=== PATIENT | female | born 1970 | race Hispanic/Latino ===

== ENCOUNTER 2025-05-09 11:14 | Emergency (ER) | payer BC ==
[~2025-05-09] VITALS: Ht 157.5 cm; Wt 70.3 kg
[2025-05-09 11:30] LABS: APPEARANCE,URINE CLEAR (CLEAR); GLUCOSE, URINE (UA) NEGATIVE (NEGATIVE); LEUKOCYTE ESTERASE ,URINE NEGATIVE Leu/uL (NEGATIVE); NITRATE,URINE NEGATIVE (NEGATIVE); OCCULT BLOOD,URINE NEGATIVE (NEGATIVE)
[2025-05-09] MEDS: 0.9%NACL 1000ML 1,000 ML IV STA (11:31)
[2025-05-09 11:36] LABS: IMMATURE GRANULOCYTE ABSOLUTE 0.01 K/uL (0-1); NUCLEATED RED BLOOD CELLS 0.0 % (0.0-0.19); PLATELET COUNT (AUTO) 264 K/uL (130-400); RED BLOOD CELL COUNT(AUTO) 4.43 MIL/uL (4.00-5.50); RED CELL DISTRIBUTION WIDTH 12.9 % (11.0-15.5); WHITE BLOOD COUNT (AUTO) 5.4 K/uL (4.8-10.8)
[2025-05-09 11:39] LABS: ADD UA MICROSCOPIC YES
[2025-05-09 11:47] LABS: CREATININE 0.7 mg/dL (0.5-1.0); GLOMERULAR FILTR. RATE CALC 101.0 mL/min (>90); GLUCOSE,RANDOM 98.0 mg/dL (70-105); SODIUM SERUM 140.0 mmol/L (136-145); UREA NITROGEN, BLOOD 9.0 mg/dL (7-18)
[2025-05-09 11:58] LABS: HCG,QUANTITATIVE 1.0 mIU/mL (0-5)
--- NOTE | 2025-05-09 13:17 | HMCIMG ---
EXAM: CT Abdomen and Pelvis Without IV contrast CLINICAL HISTORY: l flank pain TECHNIQUE: Axial computed tomography images of the abdomen and pelvis without intravenous contrast. CONTRAST: No IV contrast. COMPARISON: None provided. FINDINGS: LUNG BASES: The lung bases appear clear. No pleural effusions are seen. LIVER: Unremarkable. GALLBLADDER AND BILE DUCTS: The gallbladder appears within normal limits. No radioopaque gallstones are seen. No biliary ductal dilatation is evident. PANCREAS: Unremarkable. SPLEEN: Unremarkable. ADRENAL GLANDS: Unremarkable. KIDNEYS, URETERS, AND BLADDER: There is evidence of a tiny calculus measuring 1.8 x 2 x 2.3 mm noted along the left vesicoureteric junction with upstream mild dilatation of left pelvicalyceal system and ureter. The kidneys appear within normal limits. There is no hydronephrosis or hydroureter. No urinary calculi are seen. STOMACH AND BOWEL: Unremarkable appearance of the stomach and bowel. No evidence of bowel obstruction. No evidence suggesting enteritis or colitis. APPENDIX: No evidence of acute appendicitis on CT examination. PERITONEUM: No free fluid. No free air. LYMPH NODES: No lymphadenopathy is evident. REPRODUCTIVE: Unremarkable as visualized. VASCULATURE: No evidence of abdominal aortic aneurysm. BONES: No aggressive appearing osseous lesion. No acute osseous pathology evident. Presumed chronic compression deformity at the superior endplate of L2. IMPRESSION: 1. 1.8 x 2 x 2.3 mm calculus at the left vesicoureteric junction with mild upstream left ureteral and pelvicalyceal dilatation. /[place]
[2025-05-09] MEDS ORDERED: TAMS-55 PO (13:28)
[2025-05-09] MEDS ORDERED: KETO10TA2 PO (13:28)
--- NOTE | 2025-05-09 13:29 | ERN ---
ED Note History of Present Illness Stated Complaint: LEFT FLANK Chief Complaint: Flank Pain Time Seen by MD: 11:14 Time Seen by Midlevel: 11:18 Dictation: 55-year-old female coming in complaining of pain to the left flank radiating to the left lower quadrant. Patient states it started this morning. Denies having any fever, nausea vomiting, dysuria or hematuria. Denies any medical history, and only surgical history of a . Allergies: Coded Allergies: No Known Drug Allergies (Unverified Allergy, Unknown, 05/09/25) Past Medical History Past Medical History: No Pertinent History Surgical History: Review of System Dictation Constitutional: Negative for fever,chills, and weight loss Eyes: Negative for injury, pain,redness, and discharge ENT: Negative for injury,pain or swelling Cardiovascular: Negative for chest pain, palpitations, and edema Respiratory: Negative for shortness of breath, cough, and wheezing, Abdomen/GI: Negative for abdominal pain, nausea, vomiting, diarrhea, and constipation Back: Negative for injury and pain : Negative for injury, bleeding and discharge,, left flank pain MS/Extremity: Negative for injury and deformity Skin: Negative for rash, and discoloration Neuro: Negative for headache, weakness, numbness, tingling, and seizure Psych: Negative for suicide ideation, homicidal ideation, and hallucinations Review of Systems: was completed Initial Vital Sign VS Vital Signs Date Time Temp Pulse Resp B/P (MAP) Pulse Ox O2 Delivery O2 Flow Rate FiO2 05/09/25 11:14 98.2 73 20 185/81 99 Room Air 0 05/09/25 11:37 21 Physical Exam Dictation General: awake, alert, NAD Head/Face: Normocephalic, atraumatic Eyes: PERRL, EOMI, vision at baseline ENT: oral cavity clear, TMs clear, no signs of infection Neck: Trachea midline, supple, no nuchal rigidity Cardiovascular: RRR, normal S1/S2, No MRGs, no JVD Respiratory: CTAB, no respiratory distress, No rales or wheezes Abdomen: Soft, non-tender, non-distended, normal bowel sounds, no guarding or rebound. Skin: Warm, dry, normal turgor, no rash MS/Extremity: Pulses equal, no cyanosis, neurovascular intact, FROM Neuro: COAx4, GCS 15, strength 5/5, CN 2-12 intact, normal cerebellar exam, normal gait, Psych: Normal behavior, mood, and affect normal Results (Laboratory/Radiology) Laboratory/Radiology Laboratory Tests Test 05/09/25 11:20 05/09/25 11:29 Urine Color COLORLESS (YELLOW) Urine Appearance CLEAR (CLEAR) Urine pH 8.0 (5.0-8.0) Urine Specific Walker 1.004 (1.001-1.031) Urine Protein NEGATIVE mg/dL (NEGATIVE) Urine Glucose (UA) NEGATIVE mg/dL (NEGATIVE) Urine Ketones 10 mg/dL (NEGATIVE) H Urine Occult Blood NEGATIVE (NEGATIVE) Urine Nitrate NEGATIVE (NEGATIVE) Urine Bilirubin NEGATIVE mg/dL (NEGATIVE) Urine Urobilinogen 0.2 mg/dL (0.2-1.0) Urine Leukocyte Esterase NEGATIVE [place]/uL Urine RBC 2-5 /HPF (0-1) H Urine WBC None Seen /HPF (0-1) Urine Bacteria None Seen /HPF (None Seen) White Blood Count 5.4 K/uL (4.8-10.8) Red Blood Count 4.43 MIL/uL (4.00-5.50) Hemoglobin 13.1 g/dL (12.0-16.0) Hematocrit 38.8 % (36-48) Mean Corpuscular Volume 87.6 fL (79-99) Mean Corpuscular Hemoglobin 29.6 pg (27.0-33.0) Mean Corpuscular Hemoglobin Concent 33.8 g/dL (32.0-36.0) Red Cell Distribution Width 12.9 % (11.0-15.5) Platelet Count 264 K/uL (130-400) Mean Platelet Volume 10.2 fL (7.5-10.5) Immature Granulocyte % (Auto) 0.2 % (0-1) Neutrophils (%) (Auto) 60.3 % (40.0-77.0) Lymphocytes (%) (Auto) 30.1 % (21.0-51.0) Monocytes (%) (Auto) 7.4 % (3.0-13.0) Eosinophils (%) (Auto) 1.3 % (0.0-8.0) Basophils (%) (Auto) 0.7 % (0.0-5.0) Neutrophils # (Auto) 3.3 K/uL (1.8-7.7) Lymphocytes # (Auto) 1.6 K/uL (1.0-4.8) Monocytes # (Auto) 0.4 K/uL (0.1-1.0) Eosinophils # (Auto) 0.07 K/uL (0.00-0.70) Basophils # (Auto) 0.04 K/uL (0.00-0.20) Absolute Immature Granulocyte (auto 0.01 K/uL (0-1) Nucleated Red Blood Cells 0.0 % (0.0-0.19) Sodium Level 140 mmol/L (136-145) Potassium Level 4.1 mmol/L (3.5-5.1) Chloride Level 104 mmol/L (101-111) Carbon Dioxide Level 27 mmol/L (21-32) Blood Urea Nitrogen 9 mg/dL (7-18) Creatinine 0.7 mg/dL (0.5-1.0) Glomerular Filtration Rate Calc 101 mL/min (>90) Random Glucose 98 mg/dL (70-105) Total Calcium 9.4 mg/dL (8.5-10.1) Lipase 28 U/L (16-77) Human Chorionic Gonadotropin, Quant 1 mIU/mL (0-5) Labs Reviewed?: Yes CT Scan Comment: [address] [address] IMAGING REPORT Signed PATIENT: PERI DRISCOLL MR#: [id number] : 1970 SEX: F AGE: 55 LOCATION: [facility] ORDER 1121 STATUS: REG ER REPORT#: [id number] SERVICE 1120 REASON: l flank pain ORDERING PHYSICIAN: MAYRA OGDEN NP PROCEDURE: ABD PEL WO - CT ABDOMEN/PELVIS W/O CONTRAST EXAM: CT Abdomen and Pelvis Without IV contrast CLINICAL HISTORY: l flank pain TECHNIQUE: Axial computed tomography images of the abdomen and pelvis without intravenous contrast. CONTRAST: No IV contrast. COMPARISON: None provided. FINDINGS: LUNG BASES: The lung bases appear clear. No pleural effusions are seen. LIVER: Unremarkable. GALLBLADDER AND BILE DUCTS: The gallbladder appears within normal limits. No radioopaque gallstones are seen. No biliary ductal dilatation is evident. PANCREAS: Unremarkable. SPLEEN: Unremarkable. ADRENAL GLANDS: Unremarkable. KIDNEYS, URETERS, AND BLADDER: There is evidence of a tiny calculus measuring 1.8 x 2 x 2.3 mm noted along the left vesicoureteric junction with upstream mild dilatation of left pelvicalyceal system and ureter. The kidneys appear within normal limits. There is no hydronephrosis or hydroureter. No urinary calculi are seen. STOMACH AND BOWEL: Unremarkable appearance of the stomach and bowel. No evidence of bowel obstruction. No evidence suggesting enteritis or colitis. APPENDIX: No evidence of acute appendicitis on CT examination. PERITONEUM: No free fluid. No free air. LYMPH NODES: No lymphadenopathy is evident. REPRODUCTIVE: Unremarkable as visualized. VASCULATURE: No evidence of abdominal aortic aneurysm. BONES: No aggressive appearing osseous lesion. No acute osseous pathology evident. Presumed chronic compression deformity at the superior endplate of L2. IMPRESSION: 1. 1.8 x 2 x 2.3 mm calculus at the left vesicoureteric junction with mild upstream left ureteral and pelvicalyceal dilatation. /[place] DICTATED BY: MORRIS PADGETT Jr., MD DATE: 05/09/251415 ELECTRONICALLY SIGNED BY: MORRIS PADGETT Jr., MD DATE: 05/09/251415 ED Course ED Course Orders Procedure Category Date Status Time Cbc With Differential LAB 05/09/25 Complete 11:20 Basic Metabolic Panel LAB 05/09/25 Complete 11:20 Lipase LAB 05/09/25 Complete 11:20 Urinalysis Profile LAB 05/09/25 Complete 11:20 Hcg,Quantitative LAB 05/09/25 Complete 11:20 Ct Abdomen/Pelvis W/O CT 05/09/25 Resulted Contrast 11:20 0.9%Nacl 1000ml (Ns PHA 05/09/25 Complete 1000ml) 11:21 Ketorolac PHA 05/09/25 Complete Tromethamine 15mg/Ml 11:21 Current Medications Medications (Trade) Dose Ordered Sig/Smith Route PRN Reason Start Time Stop Time Status Last Admin Dose Admin Ketorolac Tromethamine (toRADol) 15 mg ONCE STAT IV 05/09/25 11:21 05/09/25 11:27 DC 05/09/25 11:31 Sodium Chloride 1,000 ml @ 1,000 mls/hr Q1H STAT IV 05/09/25 11:21 05/09/25 12:20 DC 05/09/25 11:31 Vital Signs Date Time Temp Pulse Resp B/P (MAP) Pulse Ox O2 Delivery O2 Flow Rate FiO2 05/09/25 11:37 98.2 72 20 180/76 98 Room Air* 0 21 05/09/25 11:14 98.2 73 20 185/81 99 Room Air 0 Medical Decision Making MDM MDM: 55-year-old female coming in complaining of pain to the left flank radiating to the left lower quadrant. Patient states it started this morning. Denies having any fever, nausea vomiting, dysuria or hematuria. Denies any medical history, and only surgical history of a . Blood work is unremarkable. Urine shows no evidence of urinary tract infection. CT scan of the abdomen and pelvis There is evidence of a tiny calculus measuring 1.8 x 2 x 2.3 mm noted along the left vesicoureteric junction with upstream mild dilatation of left pelvicalyceal system and ureter. Discussed findings with the patient. Educated patient that I will give him medication to dilate her ureters, increase fluid intake take pain medication and follow up with PCP in 1- 2 days. Patient verbalized understanding, answered all questions. Differential diagnosis: Constipation, urinary tract infection, kidney stone Rationale: Tests considered and ordered secondary to shared decision making include: Previous outside records reviewed: Old ER visits. Risk of complication and/or morbidity or mortality of patient management: None Medications-Per medication reconciliation Need for hospitalization: Patient does not meet criteria for hospitalization. Need for emergency major/minor surgery: No There are no social concerns with this patient. Prescription drug management Prescriptions will include symptomatic care Patient's prior external medical records from other ER visits were reviewed by me as indicated. Prior testing and results from previous visits were reviewed. Prior tests were taken into account with medical decision making and resource utilization, independent historian/historians were used to obtain complete medical history. I independently interpreted the test that were performed, results were reviewed by me and considered findings on radiology if ordered. Medical management and examination interpretation discussions were had by me with other qualified healthcare professionals as indicated for the patient's care. DX & DISP Disposition: Discharge Departure Impression: Primary Impression: Kidney stone on left side Condition: Stable Scripts Ketorolac Tromethamine (Ketorolac Tromethamine) 10 Mg Tablet 1 TAB PO Q6HPRN PRN for pain for 5 Days, #20 TAB 0 Refills Prov: MAYRA OGDEN NP 05/09/25 Tamsulosin HCl (Flomax) 0.4 Mg Cap.er.24h 1 CAP PO DAILY for 30 Days, #30 CAP 0 Refills Prov: MAYRA OGDEN NP 05/09/25 Additional Instructions: You have a kidney stone in your left ureter. Take medications as prescribed. You medication is to delay ureters and help pass the stone. Has not want takes periods pain in sometimes eating blood in your urine while so in his passing. Follow up with the urologist in 1-2 days and your PCP. If you start to develop any fevers, nausea vomiting report back to the emergency room. Referrals: DOM BECKMAN MD (PCP) DANIELE CHAVEZ MD Time of Disposition: 13:28 I have reviewed the case, and I agree with, Diagnosis and Plan MAYRA OGDEN NP May 09, 2025 13:29
[2025-05-09 13:40] VITALS: BP 178/74; PULSE 70; RESP 20; TEMP 98.2; O2SAT 98
== END 2025-05-09 13:56 | disposition home or self-care (01) ==
LOC: EDH 11:14
DX: N20.0 Calculus of kidney (principal); R10.2 Pelvic and perineal pain; Z98.890 Other specified postprocedural states
CPT/HCPCS: 99284; 74176; 96374; 80048; 84702; 83690; 85025; 81001; 36415; J1885; J7030